=== PATIENT | male | born 1995 | race Caucasian/White ===

== ENCOUNTER 2022-02-23 04:43 | Emergency (ER) | payer OTHER ==
[~2022-02-23] VITALS: Ht 193 cm; Wt 97.5 kg
--- NOTE | 2022-02-23 04:43 | NUR ---
PT BIB [facility], PREBOOK. TAKEN TO CHAIR
[2022-02-23 04:50] VITALS: BP 117/74
--- NOTE | 2022-02-23 05:17 | NUR ---
Dr. Jaffe examining patient.
--- NOTE | 2022-02-23 05:47 | NUR ---
PT RETURN FROM CT
[2022-02-23] MEDS ORDERED: TETRACAINE HCL/PF 0.5% OPTH 4 ML BTL OP ONE (07:05)
[2022-02-23] MEDS ORDERED: TETRACAINE HCL/PF 0.5% OPTH 4 ML BTL ONE (07:06)
[2022-02-23] MEDS ORDERED: TOMOMETER 1 DEV DEV MC ONE (07:06)
[2022-02-23 08:10] VITALS: BP 111/70
--- NOTE | 2022-02-23 08:13 | NUR ---
Patient discharged with v/s stable. Written and verbal after care instructions given and explained. Patient alert, oriented and verbalized understanding of instructions. Police with in custody. All questions addressed prior to discharge. ID band removed. Patient advised to follow up with PMD. NO Rx given. Patient educated on indication of medication including possible reaction and side effects. Opportunity to ask questions provided and answered.
== END 2022-02-23 08:10 | disposition home or self-care (01) ==
LOC: MED 04:43
DX: S02.32XA Fracture of orbital floor, left side, initial encounter for closed fracture (principal); S00.12XA Contusion of left eyelid and periocular area, initial encounter; V89.2XXA Person injured in unspecified motor-vehicle accident, traffic, initial encounter; Y93.89 Activity, other specified; Y92.410 Unspecified street and highway as the place of occurrence of the external cause; Y99.8 Other external cause status
CPT/HCPCS: 70486; 99284